=== PATIENT | female | born 1935 | race Caucasian/White ===

== ENCOUNTER 2017-02-02 20:32 | Inpatient (IN) | payer MEDICARE ==
[~2017-02-02] VITALS: Ht 167.6 cm; Wt 64.0 kg
[~2017-02-02 20:32] MED LIST: ALBU6.7H IH; LEVO75TA7 PO; MECL-102 PO; MEGE400O2 PO; PANT40TA4 PO; POLY17PO4 PO
--- NOTE | 2017-02-02 21:02 | NUR ---
SPOKE WITH SUBHASH CHARGE NURSE FROM [facility]. SUBHASH HAS ORIGINAL 5150 HOLD ON HAND. SENDING AMBULANCE WILL PANELBOARD ASSEMBLER ORNIGINAL AT THIS
[2017-02-02] MEDS ORDERED: PARO20TA51 PO (21:16)
[2017-02-02] MEDS ORDERED: NA P133E RC (21:16)
[2017-02-02] MEDS ORDERED: MAGN400O6 PO (21:16)
[2017-02-02] MEDS ORDERED: TEMA7.5C PO (21:16)
[2017-02-02] MEDS ORDERED: MAG355OR18 PO (21:16)
[2017-02-02] MEDS ORDERED: PANT40TA4 PO (21:16)
[2017-02-02] MEDS ORDERED: DOCU-141 PO (21:16)
[2017-02-02] MEDS ORDERED: MULT1TAB11 PO (21:16)
[2017-02-02] MEDS ORDERED: DIVA250T4 PO (21:16)
[2017-02-02] MEDS ORDERED: SENN-167 PO (21:16)
[2017-02-02] MEDS ORDERED: BISA-79 RC (21:16)
[2017-02-02] MEDS ORDERED: LORA0.5T PO (21:16)
[2017-02-02] MEDS ORDERED: RISP0.253 PO (21:16)
[2017-02-02] MEDS ORDERED: LAMO100T2 PO (21:16)
--- NOTE | 2017-02-02 21:56 | NUR ---
Pt. admitted to [facility] [place] [facility], under care of Dr. Keenan and Dr. Zheng Belongs List completed
--- NOTE | 2017-02-02 22:00 | NUR ---
At approx 2200 on 02/02/17, Admit 81 year olds Female [facility] under the care of Dr. Keenan and Dr. Zheng. Pt was placed on a 5150 hold d/t Gravely disable. Pt has been non-compliant with nursing staff., combative, aggressive, selectively mute, and refusing to converse. Her hold started today 02/02/17 at 1710 and will end on 02/05/17 at 1710. Patient was medically cleared at [facility] before coming to [facility] ER then to U. Patient was cooperative at time of admission. She is A/O x2. Pt noted with depressed mood. She was noted Crying at times and wishing to , but denies having a plan or intent to harm herself. Skin assessment, multiple small yellow/purple bruises notes in both lower leg posterior aspect. Multiple bruises noted in both arms and hands possible due to venipuctures and IV punctures. Redness and a small round mole noted in right buttocks. We will notified Daughter Mariaelena of admission in the morning. Dr. Keenan and Dr. Zheng were notified of admission.
[2017-02-03 03:12] VITALS: BP 141/78
[2017-02-03 07:30] VITALS: BP 97/48
[2017-02-03 16:00] VITALS: BP 116/59
--- NOTE | 2017-02-03 16:08 | NUR ---
Initial discharge instructions: Pt was residing at a [facility] [[address], [place],].Pt is not mentally stable to discuss discharge plans.SW called pt's daughter,Mariaelena Sandra [phone] and left a voicemail requesting call back.SW will speak with pt,family,and MD regarding appropriate discharge plans.SW will form a safe and proper discharge.
[2017-02-03 18:26] LABS: *BLOOD, URINE 1+ (NEGATIVE); *CLARITY,URINE CLOUDY (CLEAR); *COLOR,URINE DARK YELLOW (YELLOW); *KETONES,URINE TRACE (NEGATIVE); *PROTEIN,URINE 2+ (NEGATIVE); NITRITE, URINE POSITIVE (NEGATIVE); UGLUCOSE NEGATIVE (NEGATIVE)
--- NOTE | 2017-02-03 18:30 | NUR ---
Pt noted to have mild dark red blood when wiping margarito-area. Denies pain or discomfort at this time. Also noted very small protrusion around anal region. Spoke to Eneida MELENDEZ, ordered Anusol HC Q6hr PRN.
[2017-02-03 18:55] LABS: *BILIRUBIN,URIN 1+ (NEGATIVE); LEUKOCYTE ESTERASE ,URINE 2+ (NEGATIVE)
[2017-02-03 18:59] LABS: BACTERIA,URINE MANY /HPF (NONE SEEN); MUCUS,URINE MODERATE /LPF (0-FEW); SQUAMOUS EPITHELIAL CELL,UR MODERATE /HPF (NONE SEEN); WBC,URINE TNTC /HPF (0-3)
[2017-02-03 20:00] VITALS: BP 118/68
--- NOTE | 2017-02-03 22:50 | NUR ---
PATIENT RECEIVED IN KIM CHAIR SECURED, PATIENT ALERT ORIENTED X2. PATIENT HAS CRYING EPISODES " I WANT TO GO HOME." PATIENT COMPLAINT WITH MEDICATION. NO AGGRESSIVE OR COMBATIVE BEHAVIOR NOTED WILL CONTINUE TO MONITOR. BED IN LOWEST POSITION, BED LOCKED,AND BED ALARM ON WHILE IN BED. PATIENT DENIES PAIN AT THIS TIME, WILL CONTINUE TO MONITOR. PATIENT ENCOURAGED TO EXPRESS FEELINGS AND CONCERNS.
[2017-02-04 07:30] VITALS: BP 122/65
[2017-02-04 07:48] LABS: BASOPHILS % (AUTO) 0.4 % (0.0-2.0); EOSINOPHILS # (AUTO) 0.2 K/uL (0.0-0.7); EOSINOPHILS % (AUTO) 3.9 % (0.0-7.0); HEMATOCRIT 36.3 % (37-47); HEMOGLOBIN 12.5 G/DL (12.0-16.0); LYMPHOCYTES # (AUTO) 2.4 K/UL (0.8-4.8); LYMPHOCYTES % (AUTO) 39.4 % (20.5-51.5); MEAN CORPUSCULAR HEMOGLOBIN 34.6 UUG (27.0-31.0); MEAN CORPUSCULAR HGB CONC 35 g/dL (32.0-37.0); MEAN CORPUSCULAR VOLUME 100.1 FL (81.0-99.0); MONOCYTES # (AUTO) 0.5 K/UL (0.1-1.30); MONOCYTES % (AUTO) 8.6 % (0.0-11.0); NEUTROPHILS # (AUTO) 3.1 K/UL (1.8-8.9); NEUTROPHILS % (AUTO) 47.7 % (38.5-71.5); PLATELET COUNT (AUTO) 177 K/UL (150-450); RED BLOOD CELL COUNT(AUTO) 3.63 MIL/UL (4.2-5.4); WHITE BLOOD COUNT (AUTO) 6.2 K/UL (4.0-11.2)
[2017-02-04 08:25] LABS: ALANINE AMINOTRANSFERASE 20 U/L (14-59); ALKALINE PHOSPHATASE 62 U/L (50-136); ASPARTATE AMINOTRANSFERASE 20 U/L (15-37); BILIRUBIN,TOTAL 0.4 mg/dL (0.2-1.0); CARBON DIOXIDE 31 mmol/L (21-32); CHLORIDE 111 mmol/L (98-107); CREATININE 0.7 mg/dL (0.6-1.3); GLUCOSE 91 mg/dL (74-106); MAGNESIUM 1.7 mg/dL (1.8-2.4); PHOSPHOROUS 3.3 mg/dL (2.5-4.9); POTASSIUM 3.9 mmol/L (3.5-5.1); TOTAL PROTEIN, SERUM 6.5 g/dL (6.4-8.2); UREA NITROGEN, BLOOD 16 mg/dL (7-18)
[2017-02-04 08:29] LABS: THYROID STIMULATING HORMONE 1.558 mIU/mL (0.358-3.740)
--- NOTE | 2017-02-04 15:00 | NUR ---
1200 patient c/o chest pain, crying loud holding her left chest. Dr. Pascual making round,seeing the patient with order stat EKG- carried out. EKG done sinus tachycardia other rosario normal sinus rhythm. 1220 DISCOTHEQUE DANCER, Eneida Buckley notified about patient chest pain symptoms with order stat troponin level and drawn. 1305 troponin result normal , 0.017- DISCOTHEQUE DANCER, Ina notified and order another troponin level after 6hrs. 13 40 Patient crying loud, unable to redirect c/o stomach pain, DISCOTHEQUE DANCER notified with order, norco 5/325 mg tab q 6 hrs prn and also ordered abdominal ultrasound .
[2017-02-04 16:00] VITALS: BP 95/48
[2017-02-04 20:30] VITALS: BP 118/68
[2017-02-05 07:30] VITALS: BP 108/54
[2017-02-05 15:18] VITALS: BP 113/60
[2017-02-05 20:09] VITALS: BP 107/62
[2017-02-06 07:30] VITALS: BP 112/53
[2017-02-06 16:35] VITALS: BP 108/54
[2017-02-06 20:11] VITALS: BP 116/60
[2017-02-07 07:30] VITALS: BP 103/52
[2017-02-07 07:42] LABS: BASOPHILS % (AUTO) 0.5 % (0.0-2.0); EOSINOPHILS # (AUTO) 0.2 K/uL (0.0-0.7); EOSINOPHILS % (AUTO) 3.2 % (0.0-7.0); HEMATOCRIT 36.6 % (37-47); HEMOGLOBIN 11.9 G/DL (12.0-16.0); LYMPHOCYTES # (AUTO) 2.3 K/UL (0.8-4.8); LYMPHOCYTES % (AUTO) 44.3 % (20.5-51.5); MEAN CORPUSCULAR HGB CONC 33 g/dL (32.0-37.0); MEAN CORPUSCULAR VOLUME 101.5 FL (81.0-99.0); MONOCYTES # (AUTO) 0.4 K/UL (0.1-1.30); MONOCYTES % (AUTO) 7.6 % (0.0-11.0); NEUTROPHILS # (AUTO) 2.3 K/UL (1.8-8.9); NEUTROPHILS % (AUTO) 44.4 % (38.5-71.5); PLATELET COUNT (AUTO) 193 K/UL (150-450); RED BLOOD CELL COUNT(AUTO) 3.61 MIL/UL (4.2-5.4); WHITE BLOOD COUNT (AUTO) 5.2 K/UL (4.0-11.2)
[2017-02-07 08:15] LABS: VALPROIC ACID 41 ug/mL (50-100)
[2017-02-07 08:38] LABS: ALANINE AMINOTRANSFERASE 19 U/L (14-59); ALKALINE PHOSPHATASE 67 U/L (50-136); ASPARTATE AMINOTRANSFERASE 15 U/L (15-37); BILIRUBIN,TOTAL 0.2 mg/dL (0.2-1.0); CARBON DIOXIDE 28 mmol/L (21-32); CHLORIDE 108 mmol/L (98-107); CREATININE 0.9 mg/dL (0.6-1.3); GLUCOSE 90 mg/dL (74-106); MAGNESIUM 1.9 mg/dL (1.8-2.4); PHOSPHOROUS 3.7 mg/dL (2.5-4.9); POTASSIUM 4.3 mmol/L (3.5-5.1); TOTAL PROTEIN, SERUM 6.6 g/dL (6.4-8.2); UREA NITROGEN, BLOOD 13 mg/dL (7-18)
[2017-02-07 15:48] VITALS: BP 93/55
[2017-02-07 17:33] VITALS: BP 124/59
[2017-02-07 20:48] VITALS: BP 106/60
[2017-02-08 07:34] VITALS: BP 109/55
[2017-02-08 17:22] VITALS: BP 101/51
[2017-02-08 20:28] VITALS: BP 105/54
[2017-02-09 07:38] VITALS: BP 127/58
[2017-02-09 16:43] VITALS: BP 108/56
[2017-02-09 19:57] VITALS: BP 110/58
[2017-02-10 07:30] VITALS: BP 122/63
[2017-02-10 15:05] VITALS: BP 103/50
--- NOTE | 2017-02-10 16:16 | NUR ---
Patient sitting in vidal chair, crying intermittently , c/o generalized pain at 4/10, norco 1 tab PO given at 1306, reassessed in an hour, pain 2/10. Will continue to monitor for safety and needs.
[2017-02-10 20:27] VITALS: BP 102/54
--- NOTE | 2017-02-11 00:58 | NUR ---
PATIENT HAD A LARGE BM WITH SOME DIFFICULTY. STOOL NOTED HARD. WE WILL OFFER MOM 30ML PO PRN FOR CONSTIPATION ONCE PATIENT IS AWAKE.
--- NOTE | 2017-02-11 06:46 | NUR ---
PT REFUSED LAB DRAW THIS AM.
--- NOTE | 2017-02-11 07:05 | NUR ---
Patient slept for about 9.30 hrs through the night. However, she refused pantoprazole and synthroid QAM. MOM 30ml PO PRN was offered but she also refused. we will continue to monitor BMs
[2017-02-11 07:30] VITALS: BP 131/73
--- NOTE | 2017-02-11 09:21 | NUR ---
patient am medications and breakfast held until patient is fully awake.
[2017-02-11 20:24] VITALS: BP 119/61
--- NOTE | 2017-02-12 06:36 | NUR ---
GPS:REMAIN CALM AND COOPERATIVE WITH MEDS AND CARE. ASSISTED WITH ADL'S. SLEPT 09:30 HRS THROUGH THE NIGHT.NO AGITATION NOTED THIS TIME. CONTINUE PLAN OF CARE.
[2017-02-12 07:30] VITALS: BP 114/66
[2017-02-12 08:11] LABS: BASOPHILS % (AUTO) 0.5 % (0.0-2.0); EOSINOPHILS # (AUTO) 0.2 K/uL (0.0-0.7); EOSINOPHILS % (AUTO) 3.3 % (0.0-7.0); HEMATOCRIT 37.2 % (37-47); HEMOGLOBIN 12.5 G/DL (12.0-16.0); LYMPHOCYTES # (AUTO) 2.6 K/UL (0.8-4.8); LYMPHOCYTES % (AUTO) 54.2 % (20.5-51.5); MEAN CORPUSCULAR HGB CONC 34 g/dL (32.0-37.0); MEAN CORPUSCULAR VOLUME 101.1 FL (81.0-99.0); MONOCYTES # (AUTO) 0.3 K/UL (0.1-1.30); MONOCYTES % (AUTO) 6.8 % (0.0-11.0); NEUTROPHILS # (AUTO) 1.6 K/UL (1.8-8.9); NEUTROPHILS % (AUTO) 35.2 % (38.5-71.5); PLATELET COUNT (AUTO) 237 K/UL (150-450); RED BLOOD CELL COUNT(AUTO) 3.68 MIL/UL (4.2-5.4); WHITE BLOOD COUNT (AUTO) 4.7 K/UL (4.0-11.2)
[2017-02-12 08:27] LABS: ALANINE AMINOTRANSFERASE 21 U/L (14-59); ALKALINE PHOSPHATASE 65 U/L (50-136); ASPARTATE AMINOTRANSFERASE 21 U/L (15-37); BILIRUBIN,TOTAL 0.3 mg/dL (0.2-1.0); CARBON DIOXIDE 29 mmol/L (21-32); CHLORIDE 105 mmol/L (98-107); CREATININE 0.8 mg/dL (0.6-1.3); GLUCOSE 81 mg/dL (74-106); PHOSPHOROUS 3.4 mg/dL (2.5-4.9); POTASSIUM 4.4 mmol/L (3.5-5.1); TOTAL PROTEIN, SERUM 6.6 g/dL (6.4-8.2); UREA NITROGEN, BLOOD 20 mg/dL (7-18)
[2017-02-12 16:00] VITALS: BP 120/61
[2017-02-12 20:00] VITALS: BP 114/62
[2017-02-13 07:30] VITALS: BP 117/52
[2017-02-13 15:18] VITALS: BP 102/48
[2017-02-13 20:09] VITALS: BP 102/62
[2017-02-14 07:30] VITALS: BP 114/60
--- NOTE | 2017-02-14 07:57 | NUR ---
PATIENT REFUSED SENNA QHS. CRYING EPISODE X ONCE LAST NIGHT. HOWEVER, SHE TOOK ALL HIS QAM MEDICATION THIS AM. SHE SLEPT 8.30 HRS THROUGH THE NIGHT.
[2017-02-14 15:30] VITALS: BP 101/58
[2017-02-14 20:22] VITALS: BP 105/59
--- NOTE | 2017-02-15 06:19 | NUR ---
GPS: REMAIN COOPERATIVE WITH MEDS AND CARE. SLEPT 09:30 HRS THROUGH THE NIGHT. CRYING EPISODE X1 NOTED AFTER SHOWER THIS MORNING. CONTINUE PLAN OF CARE.
--- NOTE | 2017-02-15 06:49 | NUR ---
GPS: PATIENT C/O HEADACHE. TYLENOL 650 MG PO GIVEN.
[2017-02-15 07:30] VITALS: BP 117/56
[2017-02-15 07:45] LABS: ALANINE AMINOTRANSFERASE 36 U/L (14-59); ALKALINE PHOSPHATASE 68 U/L (50-136); ASPARTATE AMINOTRANSFERASE 37 U/L (15-37); BILIRUBIN,TOTAL 0.4 mg/dL (0.2-1.0); CARBON DIOXIDE 29 mmol/L (21-32); CHLORIDE 105 mmol/L (98-107); CREATININE 0.8 mg/dL (0.6-1.3); GLUCOSE 119 mg/dL (74-106); MAGNESIUM 1.9 mg/dL (1.8-2.4); PHOSPHOROUS 3.3 mg/dL (2.5-4.9); POTASSIUM 4.2 mmol/L (3.5-5.1); TOTAL PROTEIN, SERUM 6.9 g/dL (6.4-8.2); UREA NITROGEN, BLOOD 21 mg/dL (7-18)
[2017-02-15 08:16] LABS: BASOPHILS % (AUTO) 0.4 % (0.0-2.0); EOSINOPHILS % (AUTO) 3.4 % (0.0-7.0); HEMATOCRIT 38.7 % (37-47); HEMOGLOBIN 13.2 G/DL (12.0-16.0); LYMPHOCYTES % (AUTO) 52.9 % (20.5-51.5); MEAN CORPUSCULAR HEMOGLOBIN 34.7 UUG (27.0-31.0); MEAN CORPUSCULAR HGB CONC 34 g/dL (32.0-37.0); MEAN CORPUSCULAR VOLUME 101.6 FL (81.0-99.0); NEUTROPHILS % (AUTO) 37.3 % (38.5-71.5); PLATELET COUNT (AUTO) 287 K/UL (150-450); RED BLOOD CELL COUNT(AUTO) 3.81 MIL/UL (4.2-5.4); WHITE BLOOD COUNT (AUTO) 5.2 K/UL (4.0-11.2)
--- NOTE | 2017-02-15 12:30 | NUR ---
DC Note: Patient will be discharged to [facility] [[address] [place], [address]; [phone]] via ambulance at 3:00 pm. Spoke with Shobha the board and care companion who stated they would accept the patient today. Spoke with patient's daughter, Mariaelena Sandra [phone] who is aware and agreeable with discharge plans. Patient is aware and agreeable with discharge plans as well. Patient was referred to , , and [phone] for psychiatric referrals. She was also referred to [facility] [phone] for health psychologist referrals.
--- NOTE | 2017-02-15 13:40 | NUR ---
GPS: Nursing Notes: Refusing for Picture to be Taken: Patient is refusing for pictures to be taken. stated, "Please, do not disturbed me...", "I do not want to do that.... thank you..", continue to monitor for safety, continue with treatment plan.
[2017-02-15 15:00] VITALS: BP 137/87
--- NOTE | 2017-02-15 16:15 | NUR ---
GPS: Nursing Notes: Discharge Notes: Patient is awake and responding to her name, cooperative with nursing care, compliant with her medications, denies any SI/HI, denies any AH/VH, denies any pain or discomfort, denies any SOB, discharge to [facility] at [address] [place] [id number] . Patient's daughter, Mariaelena Sandra [phone] who is aware and agreeable with discharge plans. Patient is aware and agreeable with discharge plans as well. Patient was referred to , , and [phone] for psychiatric referrals. She was also referred to [facility] [phone] for customer success associate referrals, prescriptions and instructions given to clicking machine operator in order to give to facility.
== END 2017-02-15 16:15 | DRG 885 ==
LOC: ER 20:34 → GPS 21:49
PROVIDERS: ADMIT Psychiatry & Neurology Psychiatry; ATTEND Internal Medicine
DX: F31.64 Bipolar disorder, current episode mixed, severe, with psychotic features (principal); E44.0 Moderate protein-calorie malnutrition; E87.0 Hyperosmolality and hypernatremia; F03.91 Unspecified dementia, unspecified severity, with behavioral disturbance; N39.0 Urinary tract infection, site not specified; F23 Brief psychotic disorder; D53.9 Nutritional anemia, unspecified; E83.42 Hypomagnesemia; E83.52 Hypercalcemia; E03.9 Hypothyroidism, unspecified; K21.9 Gastro-esophageal reflux disease without esophagitis; E78.5 Hyperlipidemia, unspecified; Z87.01 Personal history of pneumonia (recurrent); M85.80 Other specified disorders of bone density and structure, unspecified site; K64.9 Unspecified hemorrhoids; Z68.22 Body mass index [BMI] 22.0-22.9, adult; B95.7 Other staphylococcus as the cause of diseases classified elsewhere; K56.41 Fecal impaction
CPT/HCPCS: 36415; 70030-TC; 74000; 80164; 83735; 84100; 84443; 85025; 87077; 87086; 93005; A4663; J3490